=== PATIENT | male | born 2005 | race Caucasian/White ===

== ENCOUNTER 2024-09-02 09:14 | Emergency (ER) | payer OTHER, MEDICAID ==
[~2024-09-02] VITALS: Ht 172.7 cm; Wt 81.6 kg
[2024-09-02] MEDS ORDERED: IBUPROFEN 800 MG TABLET ONE (12:14)
[2024-09-02] MEDS: IBUPROFEN 800 MG TABLET PO ONE (12:23)
[2024-09-02 13:11] VITALS: BP 138/92; TEMP 98.8; O2SAT 99
== END 2024-09-02 13:12 | disposition home or self-care (01) ==
LOC: ER 09:14
DX: S06.0XAA Concussion with loss of consciousness status unknown, initial encounter (principal); S19.89XA Other specified injuries of other specified part of neck, initial encounter; R51.9 Headache, unspecified; F32.A Depression, unspecified; Y04.8XXA Assault by other bodily force, initial encounter; Y93.89 Activity, other specified; Y92.89 Other specified places as the place of occurrence of the external cause; Y99.8 Other external cause status
CPT/HCPCS: 70450; 72125; A4606; A4663